=== PATIENT | male | born 1995 | race Caucasian/White ===

== ENCOUNTER 2016-08-17 09:30 | Outpatient (RCR) | payer OTHER | END 2016-08-21 | disposition home or self-care (01) | LOC: WSPT | DX: Z47.89 Encounter for other orthopedic aftercare (principal); M25.811 Other specified joint disorders, right shoulder ==

== ENCOUNTER 2016-09-21 09:30 | Outpatient (RCR) | payer OTHER | END 2016-09-22 09:48 | disposition still patient (30) | LOC: WSPT 09:30 | DX: Z47.89 Encounter for other orthopedic aftercare (principal); M25.811 Other specified joint disorders, right shoulder ==